=== PATIENT | male | born 1945 | race African-American/Black ===

== ENCOUNTER → 2017-04-01 | Outpatient (CLI) | payer MEDICARE, OTHER | END | disposition home or self-care (01) | LOC: RADMN 08:32 | PROVIDERS: ATTEND Specialist | DX: M48.06 Spinal stenosis, lumbar region (principal); M54.31 Sciatica, right side; M54.32 Sciatica, left side; M16.0 Bilateral primary osteoarthritis of hip | CPT/HCPCS: 72148; 73521 ==

== ENCOUNTER 2017-07-28 06:22 | Day surgery (SDC) | payer MEDICARE, OTHER ==
[~2017-07-28] VITALS: Ht 188 cm; Wt 89.1 kg
[~2017-07-28 06:22] MED LIST: AMLO2.5T PO; ASPI81 PO; CILO100T PO; DICLOFENAC SODIUM 0.1% 2.5 ML OPHTHALMIC SOLUTION ONE; DIVA125T PO; DULO20CA30 PO; FLUT16H NASAL; GABA-531 PO; GLIP10 PO; LISI-662 PO; METF500T4 PO; MOXIFLOXACIN HCL 0.5% 3 ML OPHTHALMIC SOLUTION ONE; MULT1CAP32 PO; PHENYLEPHRINE HCL 2.5% 2 ML OPHTHALMIC SOLUTION ONE; RANI150T7 PO; RINGERS SOLUTION,LACTATED 500 ML IV ONE; SIMV-261 PO; TROPICAMIDE 1% 2 ML OPHTHALMIC SOLUTION ONE; VITAD1000 PO
[2017-07-28] MEDS ORDERED: MOXIFLOXACIN HCL 0.5% 3 ML OPHTHALMIC SOLUTION OD ONE (06:30)
[2017-07-28] MEDS ORDERED: DICLOFENAC SODIUM 0.1% 2.5 ML OPHTHALMIC SOLUTION OD ONE (06:30)
[2017-07-28] MEDS ORDERED: 0.9% SODIUM CHLORIDE 10 ML SYRINGE IVP PRN (06:30)
[2017-07-28] MEDS: TROPICAMIDE 1% 2 ML OPHTHALMIC SOLUTION OD SCH ×2 (07:07→07:12)
[2017-07-28 07:08] LABS: GLUCOSE COMMENT 1 Doctor Notified; GLUCOSE,POINT OF CARE 330 MG/DL (70-110)
[2017-07-28] MEDS: PHENYLEPHRINE HCL 2.5% 2 ML OPHTHALMIC SOLUTION OD SCH ×2 (07:08→07:12)
[2017-07-28] MEDS ORDERED: MIDAZOLAM HCL 2 MG/2 ML VIAL IVP ONE (12:00)
[2017-07-28] MEDS ORDERED: FentaNYL CITRATE-PF 100 MCG/2 ML VIAL IVP ONE (12:00)
[2017-07-28] MEDS ORDERED: HYALURONATE SOD/CHONDROITIN SOD 0.5 ML VIAL IO ONE (17:46)
[2017-07-28] MEDS ORDERED: VANCOMYCIN HCL 500 MG/VIAL IV ONE (17:46)
[2017-07-28] MEDS ORDERED: LIDOCAINE HCL/PF 1% 2 ML VIAL IM ONE (17:46)
[2017-07-28] MEDS ORDERED: HYALURONATE SODIUM 12 MG/ML 0.8 ML SYRINGE IO ONE (17:46)
[2017-07-28] MEDS ORDERED: POVIDONE-IODINE 10% 15 ML SOLUTION UD TP ONE (17:46)
[2017-07-28] MEDS ORDERED: TETRACAINE HCL VISCOUS 0.5% 5 ML OPHTHALMIC SOLUTION OD ONE (17:46)
[2017-07-28] MEDS ORDERED: DEXAMETHASONE SOD PHOS 4 MG/ML VIAL IVP ONE (17:46)
== END 2017-07-28 10:47 | disposition home or self-care (01) ==
LOC: SURGERY 06:22
PROVIDERS: ATTEND Specialist
DX: E11.36 Type 2 diabetes mellitus with diabetic cataract (principal); H25.011 Cortical age-related cataract, right eye; E11.39 Type 2 diabetes mellitus with other diabetic ophthalmic complication; H40.9 Unspecified glaucoma; I10 Essential (primary) hypertension; E78.00 Pure hypercholesterolemia, unspecified; J44.9 Chronic obstructive pulmonary disease, unspecified; I45.10 Unspecified right bundle-branch block; F17.210 Nicotine dependence, cigarettes, uncomplicated
CPT/HCPCS: 0191T; 66984; 82962; 93005; J1100; J2250; J3010; J3370; J3490; J7120